=== PATIENT | male | born 1985 | race Caucasian/White ===

== ENCOUNTER 2019-11-02 15:24 | Emergency (ER) | payer OTHER, SELFPAY ==
[2019-11-02 15:29] VITALS: BMI 34.8
[2019-11-02 15:34] VITALS: BP 130/113; PULSE 97; RESP 16; TEMP 36.8; O2SAT 98
--- NOTE | 2019-11-02 15:48 | ED_ITS ---
Entered by Valorie Salguero, acting as scribe for Elliot Barbosa MD, [facility] [place]PI - Burn/Smoke Inhalation General: Chief complaint: Burn/Smoke Inhalation Stated complaint: chemical burn Time Seen by Provider: 11/02/19 15:47 Source: patient and RN notes reviewed Mode of arrival: ambulatory Limitations: no limitations History of Present Illness: HPI Narrative: 34 yo male presents to ED from work ([employer]) after he had a chemical burn to his R forearm. He said chemical was left on parts at work. He was doing touch up on said parts and was not aware that the chemical was left there (it is not supposed to be left on the parts). When he turned the part, the chemical dumped out and rolled down his R forearm. The patient did as instructed and washed the chemical off of his R forearm with water and then rubbed Calgonate cream on area as instructed. He said the exposure was 30 seconds at most. The patient denies pain. He said the area is red because he has been rubbing on the Calgonate cream. The period of exposure was for less than 30 seconds. No skin color changes, no wounds observed. Complaint: burn Onset (ago): minute(s) (45 (approximately 1500)) Type of Exposure: chemical (Boderite) Smoke Inhalation: none Place: unknown (work) Location - Extremities: Right: forearm Severity: mild Associated symptoms: Reports no associated symptoms and chest pain; Deny fever(s), headache(s), nausea, neck pain or vomiting Treatment Prior to Arrival: other (Colgonate Cream) Review of Systems General: Reports: 10 or more systems reviewed and unremarkable except in HPI and below Const: Denies: fever, chills or body aches Eyes: Reports: blind spots; Denies: change in vision or blurry vision ENMT: Denies: throat pain, enlarged tonsils, painful swallowing, hoarseness, mouth pain or swelling of lips/tongue Card: Reports: chest pain; Denies: palpitations, irregular heart rhythm, edema or swelling of feet/ankles Resp: Denies: shortness of breath, productive cough or non-productive cough GI: Denies: abdominal pain, nausea or vomiting : Denies: flank pain, painful urination, urinary frequency, urinary urgency or urinary hesitancy Musc: Denies: neck pain, back pain or extremity swelling Skin/Breast: Denies: rash or itching Neuro: Denies: headache, numbness in extremities or weakness in extremities Endo: Denies: excessive urination, excessive thirst or tired all the time PFSH ED PFSH: Social History Smoking and tobacco status: current every day smoker Physical Exam Const: COMMON NORMALS: no apparent distress, average body habitus, oriented x3, no limitations, healthy appearing, alert and well nourished HENMT: COMMON NORMALS: normocephalic, head/scalp atraumatic and moist oral mucous membranes HEAD & SCALP: normocephalic and atraumatic Eye: COMMON NORMALS: PERRL, EOMs intact bilaterally, conjunctivae normal and no scleral icterus CONJUNCTIVA: Yes conjunctivae normal PUPIL: Yes PERRL Neck/C-Spine: COMMON NORMALS: full ROM, supple, no meningeal signs, no JVD and no carotid bruits Chest: COMMONS NORMALS: inspection of chest normal and palpation of chest normal Resp: COMMON NORMALS: normal respiratory effort, no retractions, no use of accessory muscles, clear to auscultation bilaterally and percussion normal AUSCULTATION: clear to auscultation bilaterally PERCUSSION: percussion normal Cardio: COMMON NORMALS: no JVD, regular rate, regular rhythm, S1 normal heart sound, S2 normal heart sound, no gallops, no clicks, no murmurs, no rub and peripheral pulses 2+ throughout RATE: regular rate RHYTHM: regular rhythm HEART SOUNDS: S1 normal and S2 normal PERIPHERAL PULSES: pulses 2+ throughout GI: COMMON NORMALS: normal to inspection, nondistended, normoactive bowel sounds, soft to palpation, non-tender, no hepatosplenomegaly, no masses and no bruits PALPATION: Yes soft and Yes no hepatosplenomegaly : COMMON NORMALS: Yes no CVA tenderness BLADDER/KIDNEY EXAM: Yes no CVA tenderness Back/Pelvis: COMMON NORMALS: no CVA tenderness Extremity: COMMON NORMALS: normal to inspection, full ROM, normal capillary refill, no calf tenderness and no pedal edema Neuro: COMMON NORMALS: oriented x3 SENSORIUM/ORIENTATION: Yes alert MEN INGEAL SIGNS: Yes no meningeal signs Skin: COMMON NORMALS: no rashes or lesions noted, no wounds, skin turgor normal, no jaundice, no petechiae and no mottling GENERAL SKIN EXAM: no rashes or lesions noted and turgor normal OTHER: right forearm with no wounds noted. No burn amador. No blisters, no eschars. Course ED course: Discussed his lab findings with him. Negative for acute findings. Electrolytes fine. Since the area of burn is limited and there is no skin damage I will discharge him home with a prescription for the calcium gluconate gel. He voiced understanding and is in agreement with the plan. Reevaluation(s): Time: 18:36 Consultations: Consultation #1: Poison control. Obtain chemistries and an EKG. Continue topical calcium gluconate. Vital Signs: Vital signs: Vital Signs Temperature 98.2 F 11/02/19 15:34 Pulse Rate 71 11/02/19 18:57 Respiratory Rate 20 H 11/02/19 18:57 Blood Pressure 128/92 11/02/19 18:57 Pulse Oximetry 99 11/02/19 18:57 MDM - Burn/Smoke Inhalation MDM Narrative: Medical decision making narrative: Patient with exposure to bonderite chemical at work. He followed accompanies procedure and wash the area with water and apply calcium gluconate. On examination there is no obvious tejeda, blisters, eschars or other signs of injury. Labs unremarkable EKG normal. He is therefore discharged home to continue the topical calcium gluconate. Medical Records: Attestation: I reviewed the patient's medical records. Lab Data: Attestation: I reviewed the patient's lab results. Labs: Lab Results 11/02/19 11/02/19 Range/Units 17:37 17:37 Sodium 140 (136-145) mmol/L Potassium 4.0 (3.5-5.1) mmol/L Chloride 102 (98-107) mmol/L Carbon Dioxide 26 (22-29) mmol/L Anion Gap 16.0 (5-19) BUN 14 (6-20) mg/dL Creatinine 1.1 (0.7-1.2) mg/dL GFR Calculation 75.7 L (90-130) mL/min Glucose 102 (65-115) mg/dL Calcium 10.0 (8.5-10.5) mg/dL Ionized Calcium Me as 1.1 (1.1-1.4) mmol/L Magnesium 2.2 (1.7-2.3) mg/dL Total Bilirubin 0.3 (0.15-1.2) mg/dL AST 22 (0-40) U/L ALT 25 (0-41) U/L Alkaline Phosphata se 76 (40-130) IU/L Total Protein 8.0 (6.6-8.7) g/dL Albumin 4.8 (3.5-5.2) g/dL Globulin 3.2 (1.3-4.6) g/dL ECG Data^: EKG 1: Attestation: I personally reviewed and interpreted this EKG as follows: EKG interpretation date: 11/02/19 EKG interpretation time: 17:27 Prior EKG tracings: not available for review Interpretation: Normal sinus rhythm. Heart rate 69. Normal MN interval. Normal axis. No ST changes. Discharge Plan Discharge Patient Disposition: Home, Self-Care Clinical Impression: Chemical burn Condition: Stable Prescriptions: Continued melatonin 10 mg Tablet 20 mg PO BEDTIME PRN (Reason: Sleep) RF: 0 Discharge Orders: Discharge Order (Routine); Ordered 11/02/19 Ordered By: Elliot Barbosa Patient Instructions: Chemical Tejeda Activity Restrictions/Additional Instructions: Return for any new or worsening symptoms. Apply the gel to the skin as needed. Follow-up with your primary care provider within 3 days. Stand Alone Forms: Work/School Release Discharge Date/Time: 11/02/19 18:58 Coding Level of Care Code ED Hyster Driver for Chg Fwd Exam Comprehensive The documentation recorded by the Jose M milan Valerie R, accurately reflects the service I personally performed and the decisions made by Chelsey andrews Adegoke I, MD, [facility] [place] Nov 02, 2019 15:24
--- NOTE | 2019-11-02 16:52 | PC.NURSE ---
PATIENT REFUSED WORKMANS COMP WORKUP
[2019-11-02 17:59] LABS: Alanine Aminotransferase 25 U/L (0-41); Albumin Level 4.8 g/dL (3.5-5.2); Alkaline Phosphatase 76 IU/L (40-130); Aspartate Amino Transferase 22 U/L (0-40); Blood Urea Nitrogen 14 mg/dL (6-20); Carbon Dioxide 26 mmol/L (22-29); Chloride 102 mmol/L (98-107); Globulin 3.2 g/dL (1.3-4.6); Glomerular Filtration Rate 75.7 mL/min (90-130); Glucose 102 mg/dL (65-115); Magnesium 2.2 mg/dL (1.7-2.3); Sodium 140 mmol/L (136-145); Total Bilirubin 0.3 mg/dL (0.15-1.2)
[2019-11-02 18:05] LABS: Ionized Calcium 1.1 mmol/L (1.1-1.4)
--- NOTE | 2019-11-02 18:10 | PC.NURSE ---
pt left room as this tech was doing rounding.
--- NOTE | 2019-11-02 18:27 | ECG_ITS ---
Measurements Intervals [place] Rate: 69 P: 29 OR: 147 QRS: 44 QRSD: 93 T: 33 QT: 362 QTc: 390 SINUS RHYTHM No previous ECG available for comparison Electronically Signed On 11-03-2019 9:12:40 PUBLIC RECORDS OFFICER by Tai Arreola M.D. [email or web address]
[2019-11-02 18:57] VITALS: BP 128/92; PULSE 71; RESP 20; O2SAT 99
== END 2019-11-02 18:58 | disposition home or self-care (01) ==
PROVIDERS: Emergency Provider Family Medicine
DX: T22.411A Corrosion of unspecified degree of right forearm, initial encounter (principal); F17.200 Nicotine dependence, unspecified, uncomplicated; T65.891A Toxic effect of other specified substances, accidental (unintentional), initial encounter; Y92.89 Other specified places as the place of occurrence of the external cause
CPT/HCPCS: 80053; 82330; 83735; 93005; 99282; 99283

== ENCOUNTER 2020-01-27 15:04 | Outpatient (CLI) | payer OTHER, SELFPAY ==
--- NOTE | 2020-01-27 15:14 | XR_ITS ---
WS: [id number] PROCEDURE: XR chest 2V* [id number] CLINICAL INFORMATION: REGULATED PROGRAM MONITORING COMPARISON: June 09, 2016 FINDINGS: Heart: Normal cardiac silhouette. Lungs: Lungs are well aerated. No acute pulmonary infiltrates. No focal pneumonia. Bones: Normal visualized bony structures. XR/XR chest 2V* [id number] IMPRESSION: No acute chest findings.
== END 2020-01-27 15:05 | disposition home or self-care (01) ==
PROVIDERS: Visit Provider Preventive Medicine Occupational Medicine
DX: Z13.6 Encounter for screening for cardiovascular disorders (principal)
CPT/HCPCS: 71046

== ENCOUNTER 2022-01-19 17:08 | Outpatient (CLI) | payer OTHER, SELFPAY ==
--- NOTE | 2022-01-19 17:25 | MR_ITS ---
WS: [id number] MRI BRAIN WITH HIGH-RESOLUTION IMAGING THROUGH THE INTERNAL AUDITORY CANALS WITHOUT AND WITH CONTRAST HISTORY: MIXED CONDUCTIVE AND SENSORINEURAL HEARING LOSS/TINNITUS COMPARISON: None available. TECHNIQUE: Multiplanar, multisequence imaging is performed through the brain. Additional 3 mm imaging performed in multiple planes through the internal auditory canal. Postcontrast imaging with 20 ml's of MultiHance. No acute intracranial hemorrhage, midline shift, edema or mass effect. No prior infarct or hemorrhage. No atrophy. Posterior fossa is normal. Ventricles and extra-axial spaces are normal. No inferior displacement of cerebellar tonsils. Clivus and pituitary gland are normal. No signal abno rmalities are noted near the torus tubarius or along the eustachian tubes. There are mildly prominent adenoids. T2 bright 5 mm nodule in the posterior LEFT nasopharynx. Probably small collection of mucu s. This does not enhance. Internal and external auditory canals: No mass or abnormal enhancement along the internal or external auditory canals. Cranial nerves VII and VIII complexes: Unremarkable. No enhancement or mass. Cerebellopontine angles: Normal. Paranasal sinuses: Small lobulated mucous retention cyst in the RIGHT maxillary sinus. No air-fluid l evels. Mastoid air cells: Marked increased T2 signal throughout the LEFT mastoid air cells. There is a large amount of fluid within mastoid air cells. Smaller amount of fluid in the RIGHT mastoid air cells. Calvarium and scalp: Normal. Numerous bilateral cervical chain lymph nodes. These lymph nodes are indeterminate measuring up to 12 mm in short axis diameter. Greatest size lymph node on the LEFT. Visualized [place] and dural venous sinuses demonstrate no abnormality. MR/MR iac's wo/w con* [id number] IMPRESSION: 1. Negative internal auditory canals. 2. No mass or abnormal signal along the eustachian tubes. 3. Extensive fluid within the LEFT mastoid air cells and only mild in the RIGH T mastoid air cells. Adjacent bilateral cervical chain lymph nodes. These lymph nodes are indeterminate by MRI with the largest measuring 12 mm on the LEFT. L ymph nodes may be response to acute mastoiditis. 4. Prominent adenoids with a 5 mm T2 bright area in the LEFT nasopharynx. May be a focal collection of mucus.
[2022-01-19] MEDS: gadobenate dimeglumine 20 mL vial IV (18:13)
== END 2022-01-19 17:09 | disposition home or self-care (01) ==
PROVIDERS: Visit Provider Specialist
DX: H90.8 Mixed conductive and sensorineural hearing loss, unspecified (principal)
CPT/HCPCS: 70553

== ENCOUNTER 2022-04-05 12:30 | Outpatient (CLI) | payer OTHER, SELFPAY | END 2022-04-05 12:31 | disposition home or self-care (01) | LOC: SLEEP 04-06 11:17 | PROVIDERS: Visit Provider Nurse Practitioner Family | DX: G47.10 Hypersomnia, unspecified (principal) | CPT/HCPCS: G0399 ==

== ENCOUNTER 2023-04-12 16:18 | Emergency (ER) | payer SELFPAY ==
[2023-04-12 16:54] VITALS: BMI 34.8
[2023-04-12 16:56] VITALS: BP 139/89; PULSE 108; RESP 17; O2SAT 99
== END 2023-04-12 19:57 | disposition left against medical advice (07) ==
PROVIDERS: Emergency Provider Family Medicine
DX: L02.414 Cutaneous abscess of left upper limb (principal); Z53.21 Procedure and treatment not carried out due to patient leaving prior to being seen by health care provider